=== PATIENT | male | born 1980 | race Native Hawaiian/Other Pacific Islander ===

== ENCOUNTER 2020-11-18 09:43 | Emergency (ER) | payer OTHER ==
[~2020-11-18] VITALS: Ht 167.6 cm; Wt 85.3 kg
[~2020-11-18 09:43] MED LIST: ACYC5OIN TOP; HYDR5TAB9 PO; VALTREX1 GM PO
[2020-11-18 10:31] LABS: PLATELET COUNT 232 K/uL (142-355)
[2020-11-18 10:41] LABS: POTASSIUM 4.7 mmol/L (3.6-5.2)
[2020-11-18 14:30] VITALS: BP 131/86; TEMP 98.1
== END 2020-11-18 14:30 | disposition home or self-care (01) ==
LOC: ED 09:43
PROVIDERS: Family Medicine
DX: R42 Dizziness and giddiness (principal); R11.2 Nausea with vomiting, unspecified; R51.9 Headache, unspecified; Z03.818 Encounter for observation for suspected exposure to other biological agents ruled out
CPT/HCPCS: 36415; 80053; 80307; 81000; 82150; 82728; 83690; 85027; 85379; 87635; 96374; 96375; 99284; J1885; J2405; J3490; U0003